=== PATIENT | female | born 1995 | race Caucasian/White ===

== ENCOUNTER → 2016-12-09 | Outpatient (CLI) | payer BC ==
--- NOTE | 2016-12-09 11:35 | MRI ---
EXAM DESCRIPTION: Lumbar Spine w/o Contrast CLINICAL HISTORY: 21 years, Female, low back pain, left hip and leg pain COMPARISON: Plain radiographs November 18 FINDINGS: Sagittal and axial sequences. Bone marrow signal unremarkable. Conus terminates at L1-2. Straightening compatible muscular spasm. L1-L2 and L2-3 unremarkable. Minimal narrowing L3-4 which is otherwise unremarkable. Minimal bulge at L4-5 asymmetric to the left. L5-S1 shows some minimal facet degenerative change but is otherwise unremarkable IMPRESSION: 1. Minimal bulge slightly asymmetric to the left L4-5. 2. Other minimal degenerative changes present as discussed above . Straightening compatible with spasm Electronically signed by: Giacomo Castaneda MD 12/09/2016 11:34 AM CDT
== END | disposition home or self-care (01) ==
LOC: MRI 07:12
PROVIDERS: ATTEND Family Medicine
DX: M47.896 Other spondylosis, lumbar region (principal)

== ENCOUNTER → 2017-02-16 | Outpatient (CLI) | payer BC ==
--- NOTE | 2017-02-17 10:00 | RAD ---
EXAM DESCRIPTION: Wrist,Right 3 Views CLINICAL HISTORY: 21 years Female, PAIN IN RIGHT WRIST COMPARISON: None. FINDINGS: 6 views of the right wrist show a comminuted, impacted and slightly displaced distal right radial metaphyseal fracture with questionable intra-articular extension anteriorly. Is a slightly displaced ulnar styloid fracture. Carpal bones are intact and the radiocarpal joint is anatomically aligned. IMPRESSION: Comminuted, impacted and slightly displaced distal right radial fracture with questionable intra-articular extension. Minimally displaced ulnar styloid fracture. Electronically signed by: Callum Capellan MD 02/17/2017 9:59 AM CDT [id number]
== END ==
LOC: RAD 12:31
PROVIDERS: ATTEND Orthopaedic Surgery
DX: S52.501A Unspecified fracture of the lower end of right radius, initial encounter for closed fracture (principal); S52.614A Nondisplaced fracture of right ulna styloid process, initial encounter for closed fracture

== ENCOUNTER → 2017-02-23 | Outpatient (CLI) | payer BC, SELFPAY ==
--- NOTE | 2017-02-23 14:59 | RAD ---
EXAM DESCRIPTION: Wrist,Right 3 Views CLINICAL HISTORY: 21 years,Female ,CLOSED FX OF DISTAL END OF RADIUS COMPARISON: February 16, 2017 FINDINGS: The right wrist demonstrates comminuted metadiaphyseal fracture of the right wrist with intra-articular extent and mild impaction. And avulsion of the ulnar styloid process. These are obscured with overlying casting material. And were present in prior study.. Soft tissues appear unremarkable. Joint spaces are unremarkable.. IMPRESSION: Right distal comminuted radial fracture and ulnar solid process fracture with mild impaction of the radius. And overlying cast material. Electronically signed by: Kirill Beaulieu MD 02/23/2017 2:57 PM CDT
== END | disposition home or self-care (01) ==
LOC: RAD 07:47
PROVIDERS: ATTEND Orthopaedic Surgery
DX: S52.501D Unspecified fracture of the lower end of right radius, subsequent encounter for closed fracture with routine healing (principal)

== ENCOUNTER → 2017-02-27 | Outpatient (CLI) | payer SELFPAY ==
--- NOTE | 2017-03-02 09:03 | RAD ---
EXAM DESCRIPTION: Wrist,Right 3 Views CLINICAL HISTORY: Closed fracture distal end of radius FINDINGS/ IMPRESSION: Comparison 02/23/2017 Overlying casting obscures bony detail. Fracture distal radius with similar appearance. Nondisplaced fracture of the tip of the ulnar styloid Radial fracture demonstrates impaction and mild dorsal tilt of the distal radial articular surface No suspicion of intra-articular extension into the distal radial articular surface. No complication since previous study Electronically signed by: Mikel Griffin MD 03/02/2017 9:01 AM CDT
== END | disposition home or self-care (01) ==
LOC: RAD 08:46
PROVIDERS: ATTEND Orthopaedic Surgery
DX: S52.501D Unspecified fracture of the lower end of right radius, subsequent encounter for closed fracture with routine healing (principal)

== ENCOUNTER → 2017-03-09 | Outpatient (CLI) | payer BC, SELFPAY ==
--- NOTE | 2017-03-09 14:06 | RAD ---
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 Cast material in place. Mild impaction of the distal radius. There is mild dorsal angulation of the radius approximately 19 degrees. slightly prominent scapholunate interval consider follow-up Electronically signed by: Ankur Tirado MD 03/09/2017 2:04 PM CDT
== END | disposition home or self-care (01) ==
LOC: RAD 08:12
PROVIDERS: ATTEND Orthopaedic Surgery
DX: S52.501D Unspecified fracture of the lower end of right radius, subsequent encounter for closed fracture with routine healing (principal)

== ENCOUNTER → 2017-03-19 | Outpatient (CLI) | payer SELFPAY ==
--- NOTE | 2017-03-19 16:35 | RAD ---
EXAM DESCRIPTION: Wrist,Right 3 Views right CLINICAL HISTORY: 21 years, Female, FX COMPARISON: March 09 FINDINGS: Cast has been removed for three images. The impacted dorsal angulated fracture distal radial metaphysis has stable alignment. No clearly seen interval radiographic healing. Ulnar styloid avulsion stable IMPRESSION: Stable alignment impacted fracture distal radial metaphysis. No clearly seen interval radiographic healing. Ulnar styloid avulsion also noted, stable Electronically signed by: Giacomo Castaneda MD 03/19/2017 4:33 PM CDT
== END | disposition home or self-care (01) ==
LOC: RAD 09:04
PROVIDERS: ATTEND Orthopaedic Surgery
DX: S52.501D Unspecified fracture of the lower end of right radius, subsequent encounter for closed fracture with routine healing (principal)

== ENCOUNTER → 2017-04-27 | Outpatient (CLI) | payer BC, SELFPAY ==
--- NOTE | 2017-04-27 14:52 | RAD ---
Three-view right wrist. Indication: CLOSED FX OF DISTAL END OF RADIUS Comparison: March 19, 2017. IMPRESSION: Transversely oriented distal radial metaphysis fracture stable in alignment with slight progress of callus formation but incomplete healing at this time. Ununited ulnar styloid fracture redemonstrated with mildly sclerotic fracture margins. Mild widening of the scapholunate interval noted. MRI arthrography could better evaluate for scapholunate ligament tearing. Electronically signed by: Tristan Grove MD 04/27/2017 2:51 PM CDT
== END ==
LOC: RAD 08:54
PROVIDERS: ATTEND Orthopaedic Surgery
DX: S52.501D Unspecified fracture of the lower end of right radius, subsequent encounter for closed fracture with routine healing (principal)